=== PATIENT | female | born 1980 | race Caucasian/White ===

== ENCOUNTER 2016-10-31 13:00 | Emergency (ER) | payer BC ==
[2016-10-31] MEDS ORDERED: Ondansetron INJ* 2 MG/ML VIAL IV ONE (13:03)
[2016-10-31] MEDS ORDERED: Ondansetron INJ* 2 MG/ML VIAL ONE (13:04)
[2016-10-31] MEDS: NS 0.9% 1000 ML* 2,000 ML IV ONE ×2 (13:14→14:47)
[2016-10-31 13:26] LABS: Hematocrit 40 % (35-47); Hemoglobin 13.2 g/dl (12.0-16.0); Mean Corpuscular HGB Conc 33 g/dl (31-36); Mean Corpuscular Hemoglobin 29 pg (27-31); Mean Corpuscular Volume 86 fL (80-97); Mean Platelet Volume 9 um3 (7.4-10.4); Red Blood Count 4.62 10^6/ul (4.0-5.4); Red Cell Distribution Width 13 % (10.5-15); White Blood Count 3.1 10^3/ul (3.5-10.8)
[2016-10-31 13:32] LABS: Add Diff/Slide Review? Slide Review Added; Comments Flag Yes
--- NOTE | 2016-10-31 13:42 | RAD ---
INDICATION: Syncope. Head contusion. COMPARISON: None TECHNIQUE: Noncontrast axial source images were acquired from the skull base to the vertex. FINDINGS: Ventricles/sulci: The ventricles and cisterns are normal in size and configuration for age. Brain parenchyma: There is no focal parenchymal finding, evidence of intracranial mass, or intracranial mass effect. Intracranial hemorrhage:None. Extra-axial spaces: There are no abnormal extra axial fluid collections or evidence of extra-axial mass. Calvarium: There is no calvarial fracture or other calvarial abnormality. Scalp: There is no evidence of scalp or extracalvarial soft tissue abnormality. Paranasal sinuses/mastoid: The paranasal sinuses and mastoid air cells are clear. Other: None. IMPRESSION: NEGATIVE EXAMINATION
[2016-10-31 13:43] LABS: ALT 10 U/L (7-52); AST 17 U/L (13-39); Albumin 4.5 g/dL (3.2-5.2); Alkaline Phosphatase 47 U/L (34-104); Amylase 29 U/L (29-103); Anion Gap 8 mmol/L (2-11); BUN/Creatinine Ratio 15.6 (8-20); Blood Urea Nitrogen 12 mg/dL (6-24); C Reactive Protein < 1.00 mg/L (< 5.00); CO2 Carbon Dioxide 25 mmol/L (22-32); Calcium 9.3 mg/dL (8.6-10.3); Chloride 105 mmol/L (101-111); EGFR African American 110.4 (>60); EGFR Non-African American 85.8 (>60); Globulin 2.9 g/dL (2-4); Glucose 92 mg/dL (70-100); Lipase 10 U/L (11.0-82.0); Potassium 3.6 mmol/L (3.5-5.0); Sodium 138 mmol/L (133-145); Total Protein 7.4 g/dL (6.4-8.9)
--- NOTE | 2016-10-31 13:52 | RAD ---
INDICATION: Fall. Neck pain COMPARISON: CT neck March 06, 2016 TECHNIQUE: Noncontrast axial source images was performed from the skull base to the thoracic inlet. Coronal and and sagittal reformatted images were generated. This is a limited examination due to motion artifact. The upper cervical spine is not well evaluated and the examination should be repeated when the patient can remain still for the images. FINDINGS: Vertebrae: No acute fracture is seen but imaging of C2 and C3 is incomplete due to motion. Alignment: The craniocervical junction appears normal. There is reversal of the normal cervical lordosis. Central Canal: There are no significant CT abnormalities of the central canal or foramina. MR imaging is a more sensitive method to evaluate the canal and foramina. Intervertebral disc spaces: The disc spaces are maintained. Brain: The visualized brain appears unremarkable. Soft tissues: The visualized soft tissue elements of the neck are unremarkable. The prevertebral soft tissues appear normal. The lung apices are clear. IMPRESSION: INCOMPLETE EVALUATION OF THE UPPER CERVICAL SPINE DUE TO MOTION ARTIFACT. NO ABNORMALITIES OF THE LOWER CERVICAL SPINE ARE APPRECIATED. REVERSAL OF NORMAL CERVICAL LORDOSIS
[2016-10-31] MEDS ORDERED: NS 0.9% 1000 ML* 1,000 ML IV ONE (14:06)
--- NOTE | 2016-10-31 14:48 | RAD ---
HISTORY: Nausea, vomiting, diarrhea COMPARISONS: None relevant VIEWS: Frontal views of the abdomen. FINDINGS: BOWEL: There is a nonspecific bowel gas pattern, with nondilated small bowel gas noted. There is gaseous distention of the colon without dilatation. CALCULI: There are no abnormal calculi. BONES AND SOFT TISSUES: There are no osseous abnormalities. OTHER FINDINGS: The lung bases are clear. There is no subphrenic gas. IMPRESSION: NONSPECIFIC BOWEL GAS PATTERN. NO SUBPHRENIC GAS.
--- NOTE | 2016-10-31 15:26 | ED ---
Josh Cuellar Billy, scribed for Panchito Sapp MD on 10/31/16 at 1312 . Syncope/Near Syncope - HPI Summary HPI Summary: Patient is a 36 year-old female BIBA to [facility] after a syncopal episode this morning while she was at work. Patient is a orthotic aide at school. Her co- worker, who accompanied her to the ED, states that the patient fell to the ground immediately after standing up in the cafeteria, and hit her head on the floor. When asked, the patient is unable to give a clear answer as to whether she had LOC. Patient states that she has been feeling unwell for the last 4 days , reporting multiple episodes of N/V/D. Her co-worker states that the patient felt normal when they went out to dinner last night, but she was having multiple episodes of N/V by the time she arrived at home. At this time in the ED , patient reports headache and nausea but denies any CP, SOB, or abdominal pain. - History Of Current Complaint Chief Complaint: EDSyncope Time Seen by Provider: 10/31/16 13:03 Hx Obtained From: Patient, Other: - co-worker Onset/Duration: Sudden Onset Context: Witnessed, Other - questionable LOC Activity At Onset: Exertion - after standing Associated Head Trauma: Yes Aggravating Factor(s): Position Change Alleviating Factor(s): Nothing Associated Signs And Symptoms: Headache, Other - nausea - Allergies/Home Medications Allergies/Adverse Reactions: Allergies Allergy/AdvReac Type Severity Reaction Status Date / Time No Known Allergies Allergy Verified 03/06/16 15:06 PMH/Surg Hx/FS Hx/Imm Hx Endocrine/Hematology History: Denies: Hx Diabetes, Hx Systemic Lupus Erythematosus Cardiovascular History: Denies: Hx Hypertension, Hx Pacemaker/ICD History: Denies: Hx Dialysis, Hx Renal Disease Musculoskeletal History: Denies: Hx Rheumatoid Arthritis Sensory History: Denies: Hx Hearing Aid Psychiatric History: Denies: Hx Panic Disorder - Cancer History Hx Chemotherapy: No - Surgical History Surgery Procedure, Year, and Place: ectopic 2004, tubes Infectious Disease History: No Infectious Disease History: Denies: Traveled Outside the [place] in Last 30 Days - Social History Alcohol Use: Occasionally Substance Use Type: Reports: None Hx Tobacco Use: Yes Smoking Status (MU): Former Smoker Review of Systems Negative: Chest Pain Negative: Shortness Of Breath Positive: Vomiting - for the last several days, Diarrhea - for the last several days, Nausea. Negative: Abdominal Pain Positive: Syncope All Other Systems Reviewed And Are Negative: Yes Physical Exam Triage Information Reviewed: Yes Vital Signs On Initial Exam: Initial Vitals Temp Pulse Resp BP Pulse Ox 98.8 F 79 16 113/59 100 10/31/16 13:07 10/31/16 13:07 10/31/16 13:07 10/31/16 13:07 10/31/16 13:07 Vital Signs Reviewed: Yes Diagnostics - Vital Signs Vital Signs Temp Pulse Resp BP Pulse Ox 10/31/16 13:07 98.8 F 79 16 113/59 100 - Laboratory Lab Results: Lab Results 10/31/16 10/31/16 10/31/16 Range/Units 13:15 13:15 13:15 WBC 3.1 L (3.5-10.8) 10^3/ul RBC 4.62 (4.0-5.4) 10^6/ul Hgb 13.2 (12.0-16.0) g/dl Hct 40 (35-47) % MCV 86 (80-97) fL MCH 29 (27-31) pg MCHC 33 (31-36) g/dl RDW 13 (10.5-15) % Plt Count 218 (150-450) 10^3/ul MPV 9 (7.4-10.4) um3 Neut % (Auto) 10.8 L (38-83) % Lymph % (Auto) 59.6 H (25-47) % Evangeline % (Auto) 25.9 H (1-9) % Eos % (Auto) 2.9 (0-6) % Baso % (Auto) 0.8 (0-2) % Absolute Neuts (auto) 0.3 L* (1.5-7.7) 10^3/ul Absolute Lymphs (auto) 1.8 (1.0-4.8) 10^3/ul Absolute Monos (auto) 0.8 (0-0.8) 10^3/ul Absolute Eos (auto) 0.1 (0-0.6) 10^3/ul Absolute Basos (auto) 0 (0-0.2) 10^3/ul Absolute Nucleated RBC 0.01 10^3/ul Nucleated RBC % 0.4 Hem Pathologist Commnt Pending Sodium 138 (133-145) mmol/L Potassium 3.6 (3.5-5.0) mmol/L Chloride 105 (101-111) mmol/L Carbon Dioxide 25 (22-32) mmol/L Anion Gap 8 (2-11) mmol/L BUN 12 (6-24) mg/dL Creatinine 0.77 (0.51-0.95) mg/dL Est GFR ( Amer) 110.4 (>60) Est GFR (Non-Af Amer) 85.8 (>60) BUN/Creatinine Ratio 15.6 (8-20) Glucose 92 (70-100) mg/dL Lactic Acid 0.7 (0.5-2.0) mmol/L Calcium 9.3 (8.6-10.3) mg/dL Total Bilirubin 0.50 (0.2-1.0) mg/dL AST 17 (13-39) U/L ALT 10 (7-52) U/L Alkaline Phosphatase 47 (34-104) U/L Troponin I 0.00 (<0.04) ng/mL C-Reactive Protein < 1.00 (< 5.00) mg/L Total Protein 7.4 (6.4-8.9) g/dL Albumin 4.5 (3.2-5.2) g/dL Globulin 2.9 (2-4) g/dL Albumin/Globulin Ratio 1.6 (1-3) Amylase 29 (29-103) U/L Lipase 10 L (11.0-82.0) U/L Result Diagrams: 10/31/16 13:15 10/31/16 13:15 Lab Statement: Any lab studies that have been ordered have been reviewed, and results considered in the medical decision making process. - Radiology abd xray Radiology Interpretation Completed By: Radiologist - NONSPECIFIC BOWEL GAS PATTERN. NO SUBPHRENIC GAS. - CT brain CT Interpretation Completed By: Radiologist - Negative examination. c-spine CT Interpretation Completed By: Radiologist - INCOMPLETE EVALUATION OF THE UPPER CERVICAL SPINE DUE TO MOTION ARTIFACT. NO ABNORMALITIES OF THE LOWER CERVICAL SPINE ARE APPRECIATED. REVERSAL OF NORMAL CERVICAL LORDOSIS - EKG 1258 EKG Interpretation: NSR 88 bpm, no ST elevation Re-Evaluation - Re-Evaluation First Eval Re-Evaluation Time: 15:25 Change: Improved Course/Dx Assessment/Plan: Patient is a 36 year-old female BIBA to [facility] after a syncopal episode this morning while she was at work. Patient is a orthotic aide at school. Her co-worker, who accompanied her to the ED, states that the patient fell to the ground immediately after standing up in the cafeteria, and hit her head on the floor. When asked, the patient is unable to give a clear answer as to whether she had LOC. Patient states that she has been feeling unwell for the last 4 days, reporting multiple episodes of N/V/D. Her co-worker states that the patient felt normal when they went out to dinner last night, but she was having multiple episodes of N/V by the time she arrived at home. At this time in the ED, patient reports headache and nausea but denies any CP, SOB, or abdominal pain. Bloodwork WNL except for WBC of 3.1 and absolute neutrophils of 0.3. X-ray of the abdomen shows no acute pathology. CT of the brain shows no acute intracranial pathology and c-spine CT shows no acut4e pathology even though the upper c-spine was not well-visualized. I did clinical clearance of the neck, and she has no tenderness. She was given Zofran and she was given 3L of IV fluids and all of her symptoms have resolved. The patient was observed for approximately 3 hours in the ER without episode of N/V/D. Therefore she will be discharged home to follow up with PCP. She will be given Rx for Zofran for N/V and she was instructed to return to the ER with fever, worsening symptoms, abdominal pain of any kind. She understands and agrees. She is hemodynamically stable, A&Ox3. I discussed all the findings and test results with the patient. Patient was instructed to return to the emergency room immediately if any of the symptoms return or worsens. Plan of care was discussed with the patient and understands and agrees. All questions were answered at patient satisfaction. There were no further complaints or concerns. P/E: Lungs: CTA B/L. Good air exchange. No wheezing or crackles heard. CVS: S1 and S2 present. No murmurs appreciated. Patient is alert and oriented x 3. Patient is hemodynamically stable. Patient will be discharged home with follow up shampoo assistant in the next 2-3 days - Diagnoses Provider Diagnoses: Vasovagal syncope, Nausea vomiting and diarrhea Discharge - Discharge Plan Condition: Stable Disposition: HOME Prescriptions: Ondansetron ODT TAB* [Zofran Odt TAB*] 4 mg PO Q6H PRN #10 tab.odt PRN Reason: Vomiting Patient Education Materials: Syncope (ED) Referrals: Annie Castellano MD [Primary Care Provider] - The documentation as recorded by the Josh eng Billy accurately reflects the service I personally performed and the decisions made by Sekou lozano Walter, MD.
[2016-10-31 15:48] VITALS: BP 94/51
== END 2016-10-31 15:48 | disposition home or self-care (01) ==
LOC: ED 13:00
DX: R55 Syncope and collapse (principal); R11.2 Nausea with vomiting, unspecified; R19.7 Diarrhea, unspecified
CPT/HCPCS: 36415; 70450; 72125; 74020; 80053; 82150; 83605; 83690; 84484; 85025; 85060; 86140; 93005; 96360; 96374; 99283; J2405